=== PATIENT | male | born 1950 | race Caucasian/White ===

== ENCOUNTER → 2016-03-30 | Day surgery (SDC) | payer MEDICARE, OTHER ==
[~2016-03-30] MED LIST: ALTACE10 MG PO; ASPIRIN325 MG PO; LIPITOR40 MG PO; LORTAB 5-325 M1 EACH PO; NEXIUM40 MG PO; TENORMIN25 MG PO; TYLENOL325 MG PO; ZOFRAN4 MG PO
== END | disposition home or self-care (01) ==
LOC: SDC 13:25
DX: Z12.11 Encounter for screening for malignant neoplasm of colon (principal); K29.00 Acute gastritis without bleeding; K21.0 Gastro-esophageal reflux disease with esophagitis; K44.9 Diaphragmatic hernia without obstruction or gangrene; K57.30 Diverticulosis of large intestine without perforation or abscess without bleeding; I10 Essential (primary) hypertension; I25.119 Atherosclerotic heart disease of native coronary artery with unspecified angina pectoris; I25.2 Old myocardial infarction; M19.90 Unspecified osteoarthritis, unspecified site; Z86.010 Personal history of colon polyps; Z79.899 Other long term (current) drug therapy; Z90.49 Acquired absence of other specified parts of digestive tract
CPT/HCPCS: 43239; G0105; J2704